=== PATIENT | male | born 1985 | race Caucasian/White ===

== ENCOUNTER 2024-01-10 16:59 | Emergency (ER) | payer MEDICAID ==
[~2024-01-10] VITALS: Ht 175.3 cm; Wt 66.2 kg
[2024-01-10 18:03] VITALS: BP_SYST 115; PULSE 102; RESP 17; TEMP 98.2; O2SAT 98
[2024-01-10] MEDS ORDERED: SULF3.5O14 OP (18:14)
[2024-01-10] MEDS ORDERED: HYDR-3921 PO (18:15)
[2024-01-10] MEDS: FLUORESCEIN SODIUM 1 MG OPHTHALMIC STRIP OP ONE (18:50)
[2024-01-10] MEDS: TETRACAINE HCL/PF 0.5% OPHTHALMIC DROPS 4 ML OP ONE (18:50)
[2024-01-10] MEDS: HYDROcodone/ACETAMIN 7.5-325 MG TAB PO ONE (18:51)
[2024-01-10 18:55] VITALS: BP_SYST 115; PULSE 102; RESP 17; TEMP 98.2; O2SAT 98
== END 2024-01-10 18:55 | disposition home or self-care (01) ==
LOC: SED 16:59
DX: S05.02XA Injury of conjunctiva and corneal abrasion without foreign body, left eye, initial encounter (principal); H57.12 Ocular pain, left eye; Z79.899 Other long term (current) drug therapy; W25.XXXA Contact with sharp glass, initial encounter; Y93.89 Activity, other specified; Y92.89 Other specified places as the place of occurrence of the external cause; Y99.8 Other external cause status
CPT/HCPCS: 99283